=== PATIENT | male | born 1940 | race Asian ===

== ENCOUNTER 2020-05-17 11:17 | Outpatient (CLI) | payer MEDICARE, SELFPAY | END 2020-05-17 11:18 | disposition home or self-care (01) | LOC: ANHCOVIDVC 11:17 | PROVIDERS: PCP Family Medicine | DX: Z23 Encounter for immunization (principal) | CPT/HCPCS: 0001A; 91300 ==

== ENCOUNTER 2020-06-07 11:09 | Outpatient (CLI) | payer MEDICARE, SELFPAY | END 2020-06-07 11:10 | disposition home or self-care (01) | LOC: ANHCOVIDVC 11:09 | PROVIDERS: PCP Family Medicine | DX: Z23 Encounter for immunization (principal) | CPT/HCPCS: 0002A; 91300 ==

== ENCOUNTER 2020-09-02 06:46 | Outpatient (CLI) | payer MEDICARE, SELFPAY ==
--- NOTE | ~2020-09-02 | CT_ITS ---
EXAMINATION: CT diagnostic chest wo con EXAM DATE: 09/02/2020 07:19 INDICATION: R91.1 - Solitary pulmonary nodule. TECHNIQUE: Spiral CT of the chest without contrast. Axial, coronal and sagittal images of the chest were reviewed. Coronal maximum intensity pixel images of chest reviewed. The dose-length product ( DLP) for this examination was 86.29 mGy-cm. The exposure was tailored according to patient size (aut o mA exposure control), and iterative reconstruction (ASIR) was used as additional dose reduction annette hnique. Comparison is made to prior examination from 02/10/2019. FINDINGS: No change in the approximately 1 cm ill-defined left lower lobe superior segmental groundg lass density, probably postinfectious but recommend longer interval, follow-up chest CT in 2 years. There are no pleural or pericardial effusions. Tracheobronchial tree is patent. There is no media stinal, hilar or axillary lymphadenopathy. There is no pneumothorax. Heart normal in size. Ther e is mild coronary arterial calcification, arterial sclerosis. Mild hyperinflation and emphysema. Up per abdomen is unremarkable. There is mild thoracic spondylosis without osteoblastic or osteolytic lesions identified. IMPRESSION: 1. Stable left lower lobe superior segmental groundglass nodule; recommend follow-up in 2 years. 2. Mild emphysema and hyperinflation. Reviewed, dictated and finalized at location B. IMPRESSION: 1. Stable left lower lobe superior segmental groundglass nodule; recommend fol low-up in 2 years. 2. Mild emphysema and hyperinflation.
== END 2020-09-02 06:47 | disposition home or self-care (01) ==
PROVIDERS: PCP Family Medicine; Visit Provider Family Medicine
DX: R91.1 Solitary pulmonary nodule (principal); J43.9 Emphysema, unspecified
CPT/HCPCS: 71250

== ENCOUNTER 2022-01-19 10:19 | Outpatient (CLI) | payer MEDICARE, SELFPAY ==
--- NOTE | ~2022-01-19 | DEXA_ITS ---
Bone Density Report Name: NICK NEGRO Age: 81 Sex: Male Ethnicity: White Date of : 1940 Indication: screening for osteoporosis; Referring Provider: MELODIE GOMEZ Study: Bone densitometry was performed. Exam Date: January 19, 2022 Accession number: [id number] Bone Density: Region BMD T-score Z-score Classification AP Spine(L1-L4) 0.955 -1.2 0.0 Osteopenia Femoral Neck (Left) 0.798 -1.0 0.6 Normal Total Hip (Left) 1.000 -0.2 0.9 Normal Femoral Neck (Right) 0.778 -1.1 0.4 Osteopenia Total Hip (Right) 0.972 -0.4 0.7 Normal Total Hip Mean 0.986 -0.3 0.8 Normal World Health Organization criteria for BMD impression classify patients as: Normal (T-score at or above -1.0), Osteopenia (T-score between -1.0 and -2.5), or Osteoporosis (T-score at or below -2.5). 10-year Fracture Risk(1): Major Osteoporotic Fracture 5.7% Hip Fracture 1.9% Reported Risk Factors: [place] (), Neck BMD=0.778, BMI=21.7 (1) FRAX(R) Version 3.08. Fracture probability calculated for an untreated patient. Fracture probability may be lower if the patient has received treatment. Clinical Information Provided by Patient: Has used the following medications: Vitamin D, Calcium Patient maximum height was 72 Impression: The patient has low bone mass, based on the Total Spine T-score. The patient has an estimated ten-year risk of hip fracture of 1.9% and an estimated ten-year risk of major fracture of 5.7%, based on the WHO FRAX algorithm. Discussion: BONE DENSITY IS LOW AT ONE OR MORE SKELETAL SITES. This patient's lowest T-score is low at one or more skeletal sites. It meets the World Health Organization's (WHO) criteria for ?low bone mass? (T-score between -1.0 and -2.5). The patient's 10-year risk of fracture as calculated by FRAX is less than the threshold where pharmacological therapy is recommended by the National Osteoporosis Foundation (NOF). However, all treatment decisions require clinical judgment and consideration of individual patient factors, including patient preferences, comorbidities, previous drug use, risk factors not captured in the FRAX model (e.g., frailty, falls, vitamin D deficiency, increased bone turnover, interval significant decline in bone density) and possible under or overestimation of fracture risk by FRAX. The patient should follow a healthful lifestyle (good nutrition with adequate calcium and vitamin D, and appropriate weight-bearing exercise). Follow-Up: Consider repeating this study in 2 to 3 years to reassess this patient's status, or sooner if there is some new clinical indication. Reported by: HUMBERTO on 01/19/2022 10:51:00 AM. Reviewed, dictated and finalized at location AHunter DUNN
== END 2022-01-19 10:20 | disposition home or self-care (01) ==
PROVIDERS: PCP Family Medicine; Visit Provider Family Medicine
DX: Z13.820 Encounter for screening for osteoporosis (principal); M85.88 Other specified disorders of bone density and structure, other site; M85.851 Other specified disorders of bone density and structure, right thigh
CPT/HCPCS: 77080

== ENCOUNTER → 2022-07-12 07:54 | Outpatient (CLI) | payer MEDICARE, SELFPAY ==
--- NOTE | ~2022-07-12 | US_ITS ---
EXAMINATION: US renal BI DATE: 07/12/2022 08:28 INDICATION: Stage III chronic kidney disease TECHNIQUE: Multiple ultrasound grayscale images of the kidneys were obtained. COMPARISON: None. FINDINGS: The right kidney measures 9.3 x 5.4 x 4.8 cm. The left kidney measures 9.9 x 5.4 x 5.0 cm. The kidney s demonstrate normal echogenicity. 1.1 cm anechoic cyst at the lower pole of the left kidney. There i s no hydronephrosis in either kidney. No stones identified. The bladder is normal. IMPRESSION: 1. 1.1 cm left renal cyst. Otherwise normal kidneys without hydronephrosis. Reviewed, dictated and finalized at location A.
== END ==
PROVIDERS: PCP Family Medicine; Visit Provider Family Medicine
DX: N18.30 Chronic kidney disease, stage 3 unspecified (principal); N28.1 Cyst of kidney, acquired
CPT/HCPCS: 76775

== ENCOUNTER → 2022-08-03 13:36 | Outpatient (CLI) | payer MEDICARE, SELFPAY ==
--- NOTE | ~2022-08-03 | MR_ITS ---
MRI of the left knee Clinical history: Pain Technique: Coronal proton density and proton density-weighted images, sagittal proton-density and T2 fat-sat images, and axial proton-density fat-saturated images were acquired. Findings: Anterior and posterior cruciate ligaments are intact. Medial collateral ligament and the la teral collateral ligament complex are intact. Popliteus tendon is intact. Medial and lateral menisci are intact, without evidence of tear. There is mild chondromalacia along the medial patellar facet. Remaining articular cartilage is well p reserved. Extensor mechanism is intact. No joint effusion. No Waldron's cyst. Impression: Mild chondromalacia along the medial patellar facet. No other significant findings. Reviewed, dictated and finalized at location . Impression: Mild chondromalacia along the medial patellar facet. No other significant findings.
== END ==
PROVIDERS: PCP Family Medicine; Visit Provider Internal Medicine
DX: M25.562 Pain in left knee (principal)
CPT/HCPCS: 73721

== ENCOUNTER → 2022-08-28 13:09 | Outpatient (CLI) | payer MEDICARE, SELFPAY ==
--- NOTE | ~2022-08-28 | XR_ITS ---
XR foot RT min 3V 08/28/2022 13:20 Indication: Right first toe pain. Possible gout. Procedure: 4 views right foot Comparison: No prior studies for comparison. Findings: There are marginal erosions involving the medial aspect of the first metatarsal head and ba se of the first proximal phalanx. No acute fracture or traumatic malalignment. Lisfranc joint is inta ct. Small degenerative calcaneal enthesophyte. Impression: 1: Marginal erosions at the right first metatarsal-phalangeal joint, compatible with inflammatory art hropathy. Reviewed, dictated and finalized at location L. Impression: 1: Marginal erosions at the right first metatarsal-phalangeal joint, compatible with inflammatory arthropathy.
== END ==
PROVIDERS: PCP Family Medicine; Visit Provider Internal Medicine
DX: M79.89 Other specified soft tissue disorders (principal); M06.9 Rheumatoid arthritis, unspecified
CPT/HCPCS: 73630

== ENCOUNTER → 2022-09-12 10:45 | Outpatient (CLI) | payer MEDICARE, SELFPAY ==
--- NOTE | ~2022-09-12 | MR_ITS ---
EXAMINATION: MR foot RT wo/w con DATE: 09/12/2022 11:39 INDICATION: Gout with swelling of the right great toe TECHNIQUE: Magnetic resonance imaging (MRI) of the right fore/mid foot was performed without intraven ous contrast. Sequences included axial, sagittal and coronal T1-weighted FSE and T2-weighted FS FSE, axial T1-weighted FS FSE and postcontrast axial, sagittal and coronal T1-weighted FS FSE. COMPARISON: None FINDINGS: Bone alignment is normal. No fracture or pathologic marrow replacing process. There is prominent ivania ow edema and mild enhancement at the head and neck of the first metatarsal appears centered around er osions at the medial and plantar aspects of the heads of the first metatarsal consistent with reporte d history of gout. The medial sided erosion occurs at the footplate of the medial collateral ligament complex which is also thickened with prominent enhancement. There is an associated small joint effus ion at the first metatarsophalangeal joint. Is also a small joint effusion and enhancement of the lat eral collateral ligament complex at the second metatarsophalangeal joint without evident erosion also likely related to gout. Small likely vascular channel without marrow edema or enhancement at the lat eral head of the fifth metatarsal. No other lesions suspicious for erosions identified in the right m id and forefoot. Mild osteoarthritis at the first metatarsophalangeal joint. Remaining joint spaces a re normal. The flexor and extensor tendons are normal. The Lisfranc ligament complex is normal. IMPRESSION: 1. Marrow edema and enhancement surrounding a couple enhancing erosions at the head of the first meta tarsal likely sequela of gout. 2. Thickening and enhancement of the medial collateral ligament at the first metatarsophalangeal join t and lateral collateral ligament complex at the second metatarsophalangeal joint also likely related to gout. Reviewed, dictated and finalized at location A. IMPRESSION: 1. Marrow edema and enhancement surrounding a couple enhancing erosions at the head of the first metatarsal likely sequela of gout. 2. Thickening and enhancement of the medial collateral ligament at the first me tatarsophalangeal joint and lateral collateral ligament complex at the second m etatarsophalangeal joint also likely related to gout.
== END ==
PROVIDERS: PCP Family Medicine; Visit Provider Internal Medicine
DX: M10.9 Gout, unspecified (principal); M19.90 Unspecified osteoarthritis, unspecified site
CPT/HCPCS: 73720; A9577

== ENCOUNTER → 2022-09-12 11:46 | Outpatient (CLI) | payer MEDICARE, SELFPAY ==
--- NOTE | ~2022-09-12 | CT_ITS ---
EXAMINATION: CT diagnostic chest wo con DATE: 09/12/2022 12:04 INDICATION: Pulmonary nodule TECHNIQUE: Computed tomography (CT) of the chest was performed without intravenous contrast. The dose -length product (DLP) was 104.51 mGy-cm. Automated exposure control and iterative reconstruction tech nique were employed. COMPARISON: 09/02/2020, 02/10/2019 FINDINGS: There is a stable 1.6 cm groundglass nodule in the superior segment of the left lower lobe without solid nodular component. The lungs are free of acute opacities. No pleural effusion or pneumo thorax. No pathologically enlarged thoracic lymph nodes are identified. The heart size is normal. Eugene cified coronary artery atherosclerosis is noted. There is mild thoracic spondylosis. IMPRESSION: 1. Stable groundglass nodule of the left lower lobe without solid nodular component, likely scarring given the lack of interval change. Reviewed, dictated and finalized at location L. IMPRESSION: 1. Stable groundglass nodule of the left lower lobe without solid nodular compo nent, likely scarring given the lack of interval change.
== END ==
PROVIDERS: PCP Family Medicine; Visit Provider Family Medicine
DX: R91.1 Solitary pulmonary nodule (principal); R91.8 Other nonspecific abnormal finding of lung field
CPT/HCPCS: 71250

== ENCOUNTER 2023-08-17 08:16 | Outpatient (CLI) | payer MEDICARE, SELFPAY ==
--- NOTE | ~2023-08-17 | US_ITS ---
Limited Abdominal Sonogram: Real-time sonographic imaging of the left upper quadrant was performed. Clinical History: Left upper quadrant pain Findings: Left kidney measures 10.2 cm in length, without hydronephrosis or renal stone. Echogenicity is unremarkable. 1.1 cm left renal cyst present. Spleen unremarkable, without focal lesion. No free fluid evident. Visualized aorta unremarkable. Impression: No significant abnormality seen. Reviewed, dictated and finalized at location M. Impression: No significant abnormality seen.
== END 2023-08-17 08:17 ==
LOC: GOSHIMG 08:16
PROVIDERS: PCP Family Medicine; Visit Provider Family Medicine
DX: R10.12 Left upper quadrant pain (principal)
CPT/HCPCS: 76705

== ENCOUNTER 2024-04-29 09:53 | Outpatient (CLI) | payer OTHER, SELFPAY ==
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
== END 2024-04-29 09:54 | disposition home or self-care (01) ==
PROVIDERS: PCP Family Medicine; Visit Provider Family Medicine
DX: M19.011 Primary osteoarthritis, right shoulder (principal); M19.042 Primary osteoarthritis, left hand; V89.2XXA Person injured in unspecified motor-vehicle accident, traffic, initial encounter
CPT/HCPCS: 73030; 73130

== ENCOUNTER 2024-06-07 08:48 | Outpatient (CLI) | payer MEDICARE, SELFPAY ==
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
--- OUTSIDE RECORDS SUMMARY | 2024-06-07 08:52 | XMS_ITS | Clinical Summary ---
Author Organization [facility] Address [address] [place] [id number] Phone Care Team Providers Care Plug Wirer Name Role Phone Unavailable Primary Care Provider Unavailabl e Medications Medication Sig Dispensed Refills Start Date End Date Status Multiple Vitamin (MULTIVITAMIN) capsule 1 daily 0 12/17/2017 Active Active Problems Problem Noted Date Diagnosed Date Chronic kidney disease, stage 3 (moderate) 12/17 Elevated prostate specific antigen (PSA) 018 Family History Medical History Relation Comments Malignant neoplastic disease Father Malignant neoplastic disease Mother Malignant neoplastic disease Sibling Kidney disease Neg Hx Relation Status Comments Father Mother Sibling Social History Tobacco Use Types Packs/Day Years Used Date Smoking Tobacco: Former Cigarettes Q uit: 03/19/1987 Alcohol Use Standard Drinks/Week Comments No 0 (1 standard drink = 0.6 oz pur e alcohol) Sex and Gender Information Value Date Recorded Sex Assigned at Not on file Gender Identity Not on file Sexual Orientation Not on file Last Filed Vital Signs Vital Sign Reading Time Taken Comments Blood Pressure 128/80 12/17/2017 12:01 AM CDT Pulse 72 12/17/2017 12:01 AM CDT Temperature 36.8 C (98.2 F) 12/17/2017 12:01 AM CDT Respiratory Rate - - Oxygen Saturation - - Inhaled Oxygen Concentration - - Weight 73.9 kg (163 lb) 12/17/2017 12:01 AM CDT Height 182.9 cm (6') 12/17/2017 12:01 AM CDT Body Mass Index 22.11 12/17/2017 12:01 AM CDT Plan of Treatment Not on file
--- OUTSIDE RECORDS SUMMARY | 2024-06-07 08:52 | XMS_ITS | Continuity of Care Document ---
Author Organization [facility] Address [address] [place] [address] Phone Care Team Providers Care Certified Credit Counselor Name Role Phone Viky MCCLAIN, Derrick Unavailable Unavailabl e Allergies, Adverse Reactions, Alerts Substance Reaction Status Criticality No Known Allergies Active No Inform ation Procedures Procedure Date X-ray exam finger(s), minimum 2 views Ju Kenalog Triamcinolone acetonide inj Asp/inject Minor joint or bursa w/o US g uidance Kenalog Triamcinolone acetonide inj Inject tndn sheath/lgmnt/gangl cyst Office/outpatient visit,[facility] 2020 Advance Directives Directive Yes / No Effective Date File Name No Information Encounters Encounter Description Practice Location Reason(s) For Visit Diagnoses Date Provider Providers Copied on Encounter Office/outpa tient visit,[facility], [address] [place] [address], [id number], tel:[phone] [facility] left hand (chief complaint) Pain in left finger(s)Trigger finger, left ring fingerUnilateral primary osteoarthritis of first carpometacarpal joint, left handGanglion, left wrist 1 Viky Meza. [address], [facility] [address], [place], [place], [id number], [place]. tel:[phone] Referring Provider: Derrick Foster, [address] [place] [address], [place], [address] . tel:[phone] Family History Family Member Type Diagnosis Age At Onset Mother Problem (finding) Cancer, unknown Father Problem (finding) Cancer, unknown Payers Payer name Insurance type Covered alliance party ID Daisy lee(s) [employer] Medicare Advantage CI [id number] Social History Type Description Quantity Date Captured Comments Alcohol Use Details Unknown Caffeine Use Details Unknown Tobacco Use Status No Information Smoking Status Former smoker Non-Smoking Tobacco Use Details : No Details Available : No Details Available Sex Male Vital Signs Date / Time: Height Weight BMI Pulse Rate Blood Pressure Temperature Respiratory Rate Body Surface Area Head Circumference Head Circ. Percentile Wt./Aron. Percentile BMI percentile Pulse Ox Inhaled Ox 9:08 AM 71.00 in 72.575 kg (160.00 lbs) 22.3 2 kg/m eter (2) Chief Complaint And Reason For Visit From encounter dated '08/23/2020 09:10'. left hand (chief complaint). Description: Leyla presents to the office today on August 23, 2020. He ishere because of left thumb pain, and also because of pain and triggering of the left ring finger. Leyla explains that his symptoms all started about 1 month ago. He has never had a trigger finger before. He is here today for further evaluation and treatment. He rates his pain a 6 on a scale of 0-10. He describes the pain as sharp. Reason For Referral Reason For Referral No Information Plan Of Treatment Date Type Action Status Referral Ordered: X-ray exam finger(s), minimum 2 views LT ordered History Of Present Illness Encounter Date Complaint History Of Prese nt Illness left hand Leyla presents t o the office today on August 23, 2020. He is here because of left thumb pain, and also because of pain and triggering of the left ring finger. Leyla explains that his symptoms all started about 1 month ago. He has never had a trigger finger before. He is here today for further evaluation and treatment. He rates his pain a 6 on a scale of 0-10. He describes the pain as sharp. Functional Status Date Functional Assessmen t No Information Instructions Date Instruction Additional Infor mation No Information Assessments Type Assessment Date assessment Pain in left finger(s) 21 assessment Trigger finger, left ring finger assessment Unilateral primary o steoarthritis of first carpometacarpal joint, left hand assessment Ganglion, left wrist impression We discussed treatme nt options for the stenosing flexor tenosynovitis of the left ring finger (trigger finger). We decided to try a cortisone injection today for the stenosing flexor tenosynovitis of the left ring finger. I injected the flexor tendon sheath of the left ring finger today with 1.0 mL lidocaine and 1.0 mL Kenalog. impression We also discussed tr eatment options for the left thumb carpometacarpal joint osteoarthritis. We decided to try a cortisone injection today for the left thumb CMC arthritis as well. I injected the carpometacarpal joint at the base of the left thumb today with 1.0 cc lidocaine and 1.0 cc Kenalog for the osteoarthritis at the carpometacarpal joint at the base of the left thumb. Leyla may advance his activities as tolerated. He will follow up as needed. Leyla may also call with any questions or concerns Patient Care Teams Name Effective Dates (start - stop) Status Members No Information
--- OUTSIDE RECORDS SUMMARY | 2024-06-07 08:52 | XMS_ITS | Data Portability ---
Author Organization [place] - [facility] [employer], Main Office Address [address] [place] [address] Care Team Providers Care Cow Washer Name Role Phone MELODIE GOMEZ Primary Care Provider MELODIE GOMEZ Referring Provider [phone] Assessment Encounter Date Assessment Date Assessment LastModified by Organization Details LastModified Time 01/16/2024 01/16/2024 83-year-old male presents for evaluation of bilateral knees, right worse than left. He reports this has been going on for a few weeks. It began when he was doing a lot of yd work. He denies any acute injury or trauma. He denies any previous injury. Pain is located over the anterior knee. He reports having some swelling, denies any catching or locking. Review of systems per patient questionnaire Physical exam: He has tenderness palpation of the medial joint line and also over the patellofemoral joint. Range of motion 0-130. Negative Bronwyn's. Stable ligaments. X-rays reviewed, demonstrating no acute bony abnormality, preserved joint space For his knee pain, we will begin with a course of conservative management with anti-inflammatori es and physical therapy. He can also use topical Voltaren. We can see him back as needed after the course of treatment. If he still has symptoms at that point, we may consider a cortisone injection. He is in agreement with the plan. [email or web address] Not available 01/16/2024 14:52:53 Plan of Treatment Reminders Order Date Submit Date Provider Last Modified By Organization Details Last Modified Time Details Appointments None recorded. Lab None recorded. Referral None recorded. Procedures None recorded. Surgeries None recorded. Imaging XR, knee 2023 024 [email or web address] [place], [address], [place], [id number], 4 08:29:13 Medication Orders meloxicam 15 mg tablet 2023 024 [email or web address] [facility], [address], [place], [id number], 4 17:07:46 Patient TargetsNo targets recorded. Patient InstructionsNo instructions recorded. Reason for Referral None Reported. Results Created Date Observation Date Name Description Value Unit Range Abnormal Flag Note LastModifiedBy Organization Detail LastModifiedTime 08/10/19 22 XR, hand, 3 or more view No observ ation record ed. [id number] [facility] [place] [address], [place], [id number], 05/17/2022 13:31:23 01/16/20 24 XR, knee No observ ation record ed. [email or web address] [facility] [place] [address], [place], [id number], 01/16/2024 09:52:09 Result Notes None recorded. Problems Name Problem SNOMED Code Status Onset Date Resolution Date Notes Provider Name and Address Organization Details Recorded Time Disorder of bursa of shoulder region 09165030 Active Not Available [facility] 3 13:27:53 Pain in limb 16582464 Active Not Available [facility] 3 13:27:53 Pain of bilateral knee joints 4048525454410 04 Active 2023 JED Mont[place], [place] - [facility] 4 09:52:30 Problem Notes None recorded. Procedures Surgical History None recorded. Imaging Results Imaging Date Name Status LastModified by Organiz ation Details LastModified Time 08/09/2021 XR, hand, 3 or more view completed [id number] [facility] [place] [address], [place], [id number], 05/17/2022 13:31:23 01/16/2024 XR, knee completed [email or web address] [facility] [place] [address], [place], [id number], 01/16/2024 09:52:09 Procedure Notes None recorded. Medical Equipment None Reported. Allergies No known drug allergies Medications Name Sig Start Date Stop Date Status Note LastModified by Organization Details LastModified Time prednisone 10 mg tablet TAKE 1 TABLET BY MOUTH ONCE DAILY 01/15 completed Not Available Not Available Not Available meloxicam 15 mg tablet TAKE 1 TABLET BY MOUTH ONCE DAILY active Not Available Not Available No t Available Celebrex 200 mg capsule Take 1 capsule every day by oral route. 08/01 completed Not Available Not Available Not Available Kenalog 10 mg/mL suspension for injection In office injection administe red by the provider 01/14 completed NDC: 0003- 0494- 20 Not Available Not Available Not Available pravastatin 20 mg tablet TAKE 1 TABLET BY MOUTH ONCE DAILY AT BEDTIME active Not Available Not Available No t Available methylpredn isolone 4 mg tablets in a dose pack FOLLOW PACKAGE DIRECTION S 08/09 completed Not Available Not Available Not Available ciprofloxac in 0.3 %-dexametha sone 0.1 % ear drops,suspe nsion SHAKE LIQUID AND INSTILL 4 DROPS TO AFFECTED EAR TWICE DAILY FOR 10 DAYS 08/09 completed Not Available Not Available Not Available lidocaine (PF) 10 mg/mL (1 %) injection solution In office injection administe red by the provider 01/14 completed NDC: 0409- 4276- 17 Not Available Not Available Not Available fluocinolon e acetonide oil 0.01 % ear drops INSTILL 5 TO 7 DROPS TO EACH EAR TWICE DAILY FOR 7 DAYS, THEN 3 DROPS TWICE WEEKLY 01/15 completed Not Available Not Available Not Available peg 3350-electr olytes 236 gram-22.74 gram-6.74 gram-5.86 gram solution USE DIRECTED 08/09 completed Not Available Not Available Not Available febuxostat 40 mg tablet TAKE 1 TABLET BY MOUTH ONCE DAILY active Not Available Not Available No t Available Vitals Date Recorded Body mass index (BMI) Body height Pain severity - 0-10 verbal numeric rating [Score] - Reported Body weight Provider Name and Address Organization Details Last Updated DateTime 08/09/2021 21.6 kg/m2 180.34 cm 7 54965.82 g Not Available [facility] 05/17/2022 13:27:33 Date Recorded Body height Body mass index (BMI) Body weight Pain severity - 0-10 verbal numeric rating [Score] - Reported Provider Name and Address Organization Details Last Updated DateTime 01/16/2024 180.34 cm 21.6 kg/m2 50397.82 g 8 JED Montalvo [place] - [facility] 01/16/2024 09:49:44 Social History Question Answer Notes LastModified by Organizat ion Details LastModified Time Tobacco Smoking Status Unknown If Ever Smoked Not Available [facility] 05/17/2022 13:27:20 What Is Your Level Of Alcohol Consumption? None [id number] Information not available 05/17/2022 What Was The Date Of Your Most Recent Tobacco Screening? 01/16/2024 [email or web address] Information not available 01/16/2024 Sex: Unknown Functional Status None recorded. Mental Status None recorded. Family History Relationship Description Onset Age of this Age Resolved Age Notes LastModified by Organization Details LastModified Time Father Family history of malignant neoplasm [id number] Not available 05/17/2022 13:27:22 Mother Hypertensive disorder [email or web address] Not available 2023 09:50:47 Sister Diabetes mellitus [email or web address] Not available 2023 09:50:58 Medical History Condition Response GOUT Y Past Encounters Encounter ID Performer Location Encounter Start Date Encounter Closed Date Diagnosis/Indication Diagnosis SNOMED-CT Code Diagnosis ICD10 Code Diagnosis Note [id number] [facility] [place] [address] [place] [address] 08/09/2021 00:00:00 08/09/2021 09:41:27 [id number] Inocente Soriano MD [facility] [place] [address] [place] [address] 01/16/2024 09:27:42 01/16/2024 10:52:20 Pain of bilateral knee joints [id number] 48099 M25.569 Health Concerns Section Related Observation LastModified by Organization Becca ls LastModified Time None Recorded Concern Status LastModified by Organization Details LastModified Time None Recorded Advance Directives Directive None Recorded Payers Encounter Date Sequence Insurance Name Policy Number Policy Roper Covered Member ID Roper Member ID Guarantor Name 01/16/2024 1 [employer] (MEDICARE REPLACEMENT PPO) [id number] Leyla Vidal [id number] Leyla Vidal
== END 2024-06-07 08:49 | disposition home or self-care (01) ==
PROVIDERS: PCP Family Medicine; Visit Provider Physician Assistant Medical
DX: R51.9 Headache, unspecified (principal)
CPT/HCPCS: 70553; A9579

== ENCOUNTER 2024-07-30 12:51 | Outpatient (CLI) | payer MEDICARE, SELFPAY ==
--- NOTE | ~2024-07-30 | CT_ITS ---
CT Scan of the Chest without Contrast: Clinical Indication: Abnormal finding of lung field Technique: Contiguous sections were acquired throughout the chest without intravenous contrast. Dose reduction technique was used on this scan by utilizing automated exposure control and iterative recon struction technique. The dose-length product (DLP) was 194.33 mGy-cm. COMPARISON: 09/12/2022 Findings: There is no evidence of any significant mediastinal, hilar or axillary lymphadenopathy. The mediastin al soft tissues appear normal. There is no evidence of pleural or pericardial effusion. Stable subtle groundglass lesion in the superior segment left lower lobe. Images through the upper abdomen reveal no abnormalities. Impression: Stable subtle groundglass lesion in the superior segment left lower lobe. Reviewed, dictated and finalized at location . Impression: Stable subtle groundglass lesion in the superior segment left lower lobe.
== END 2024-07-30 12:52 | disposition home or self-care (01) ==
LOC: GOSHIMG 12:51
PROVIDERS: PCP Family Medicine; Visit Provider Family Medicine
DX: R91.8 Other nonspecific abnormal finding of lung field (principal)
CPT/HCPCS: 71250

== ENCOUNTER 2024-11-13 08:01 | Outpatient (CLI) | payer MEDICARE, SELFPAY ==
--- NOTE | ~2024-11-13 | DEXA_ITS ---
Bone Density Report Name: NICK NEGRO Age: 84 Sex: Male Ethnicity: White Date of : 1940 Indication: osteopenia; history of glucocorticoids; Referring Provider: BILL CRABTREE Study: Bone densitometry was performed. Exam Date: November 13, 2024 Accession number: [id number] Bone Density: Region BMD T-score Z-score Classification AP Spine(L1-L4) 0.954 -1.2 0.0 Osteopenia Femoral Neck (Left) 0.789 -1.0 0.6 Normal Total Hip (Left) 1.002 -0.2 1.0 Normal Femoral Neck (Right) 0.777 -1.1 0.5 Osteopenia Total Hip (Right) 0.961 -0.5 0.7 Normal Total Hip Mean 0.982 -0.4 0.9 Normal World Health Organization criteria for BMD impression classify patients as: Normal (T-score at or above -1.0), Osteopenia (T-score between -1.0 and -2.5), or Osteoporosis (T-score at or below -2.5). 10-year Fracture Risk(1): Major Osteoporotic Fracture 8.3% Hip Fracture 3.3% Reported Risk Factors: [place] (), Neck BMD=0.777, BMI=22.5, glucocorticoids (1) FRAX(R) Version 3.08. Fracture probability calculated for an untreated patient. Fracture probability may be lower if the patient has received treatment. Previous Exams: -- Region Exam Age BMD T-score BMD Change BMD Change Date g/cm2 vs Baseline vs Previous -- AP Spine (L1-L4) 11/13/2024 84 0.954 -1.2 -0.1% -0.1% 01/19/2022 81 0.955 -1.2 Total Hip(Left) 11/13/2024 84 1.002 -0.2 0.2% 0.2% 01/19/2022 81 1.000 -0.2 Total Hip(Right) 11/13/2024 84 0.961 -0.5 -1.1% -1.1% 01/19/2022 81 0.972 -0.4 -- *Denotes significance at 95% confidence level, LSC for AP Spine = 0.022 g/cm2, LSC for Total Hip = 0.027 g/cm2 Clinical Information Provided by Patient: Has taken Glucocorticoids Has used the following medications: Vitamin D, Calcium Patient maximum height was 71 No regular weight bearing exercise Impression: The patient has low bone mass, based on the Total Spine T-score. The patient has an estimated ten-year risk of hip fracture of 3.3% and an estimated ten-year risk of major fracture of 8.3%, based on the WHO FRAX algorithm. The patient has risk factors, including: history of glucocorticoid therapy. No significant bone loss was observed. Discussion: BONE DENSITY IS LOW AT ONE OR MORE SKELETAL SITES. THE PATIENT'S BMD AND CLINICAL RISK FACTORS CONTRIBUTE TO THIS PATIENT'S INCREASED RISK OF FRACTURE. This patient's lowest T-score is low at one or more skeletal sites. It meets the World Health Organization's (WHO) criteria for ?low bone mass? (T-score between -1.0 and -2.5). The patient's 10-year risk of hip fracture as calculated by FRAX exceeds the threshold where pharmacological therapy is recommended by the National Osteoporosis Foundation (NOF). However, all treatment decisions require clinical judgment and consideration of individual patient factors, including patient preferences, comorbidities, previous drug use, risk factors not captured in the FRAX model (e.g., frailty, falls, vitamin D deficiency, increased bone turnover, interval significant decline in bone density) and possible under or overestimation of fracture risk by FRAX. The patient should follow a healthful lifestyle (good nutrition with adequate calcium and vitamin D, and appropriate weight-bearing exercise). Follow-Up: Consider repeating this study in 2 years to reassess this patient's status, or sooner if there is some new clinical indication. Reported by: HUMBERTO on 11/13/2024 8:32:00 AM. Reviewed, dictated and finalized at location A.
== END 2024-11-13 08:02 | disposition home or self-care (01) ==
LOC: MICIMG 08:02
PROVIDERS: PCP Family Medicine; Visit Provider Student in an Organized Health Care Education/Training Program
DX: M85.88 Other specified disorders of bone density and structure, other site (principal); M85.851 Other specified disorders of bone density and structure, right thigh
CPT/HCPCS: 77080